=== PATIENT | female | born 1975 | race Two or more races ===

== ENCOUNTER 2017-12-10 05:20 | Day surgery (SDC) | payer OTHER ==
[2017-12-08 15:25] VITALS: BMI 25.2
--- NOTE | 2017-12-10 12:24 | HP ---
History & Physical Update - History History: No Change - Physical Physical: No Change - Assessment Assessment: No Change - Plan Plan: No Change (H & P done on 11/26/17)
[2017-12-10] MEDS ORDERED: LIDOCAINE HCL/PF 2% SDV 5ML VIAL ONE (12:49)
[2017-12-10] MEDS ORDERED: ROCURONIUM BROMIDE 50 MG/5 ML VIAL ONE (12:49)
[2017-12-10] MEDS ORDERED: ceFAZolin SODIUM 1 GM VIAL ONE (12:49)
[2017-12-10] MEDS ORDERED: DEXAMETHASONE SOD PHOSPHATE 4 MG/1 ML VIAL ONE ×2 (12:49→13:41)
[2017-12-10] MEDS ORDERED: MIDAZOLAM HCL 2 MG/2 ML SINGLE DOSE VIAL ONE (12:50)
[2017-12-10] MEDS ORDERED: PROPOFOL 20 ML ONE ×2 (12:50)
[2017-12-10] MEDS ORDERED: SUCCINYLCHOLINE CHLORIDE 200 MG/10 ML VIAL ONE (12:50)
[2017-12-10] MEDS ORDERED: BUPIVACAINE HCL/PF 0.25% (2.5MG/ML) 10 ML VIAL ONE (13:04)
[2017-12-10] MEDS ORDERED: ceFAZolin SODIUM 1 GM VIAL IVPB ONE (13:27)
[2017-12-10] MEDS ORDERED: KETOROLAC TROMETHAMINE 30 MG/1 ML VIAL ONE (13:41)
[2017-12-10] MEDS ORDERED: BUPIVACAINE HCL/PF 0.5% (5MG/ML) 10 ML VIAL IJ ONE (13:45)
[2017-12-10] MEDS ORDERED: BUPIVACAINE HCL/PF 0.25% (2.5MG/ML) 10 ML VIAL IJ ONE (13:45)
[2017-12-10] MEDS ORDERED: GLYCOPYRROLATE 0.2 MG/1 ML VIAL ONE (14:16)
[2017-12-10] MEDS ORDERED: NEOSTIGMINE METHYLSULFATE 0.5 MG/ML - 10 ML MDV ONE (14:16)
--- NOTE | 2017-12-10 14:48 | OP ---
Operative Note - Note: Operative Date: 12/10/17 Pre-Operative Diagnosis: ventral hernia Operation: laparoscopic ventral hernia repair with mesh Post-Operative Diagnosis: Same as Pre-op Surgeon: Ihsan Hester Business Lawyer: Alison Arrieta Anesthesiologist/DIRECTOR STRATEGIC PLANNING: Linda Mccord MD Anesthesia: General Estimated Blood Loss (mls): 20 Fluid Volume Replaced (mls): 1,000 Operative Report Dictated: Yes
--- NOTE | 2017-12-10 14:49 | SURG ---
Surgery Light Oil Operator Note Light Oil Operator: Alison Arrieta PA-C Date of Service: 12/10/17 Diagnosis: ventral hernia Procedure: laparoscopic ventral hernia repair with mesh I was present for the entirety of the operative procedure. For further detail, please refer to operative report. Visit type - Case Type Case Type: Scheduled - Emergency Emergency Visit: No - New patient This patient is new to me today: Yes Date on this admission: 12/10/17
[2017-12-10] MEDS ORDERED: ACETAMINOPHEN 1000 MG/100 ML VIAL (NON FORMULARY) IVPB ONE ×2 (15:30→16:30)
[2017-12-10] MEDS ORDERED: ACETAMINOPHEN INJECTION 100 ML IVPB ONE (15:48)
[2017-12-10] MEDS ORDERED: ONDANSETRON 4 MG/2 ML VIAL IVPUSH PRN (16:05)
[2017-12-10] MEDS ORDERED: LACTATED RINGERS SOLUTION 1,000 ML IV SCH (16:15)
[2017-12-10] MEDS ORDERED: oxyCODONE HCL 5 MG TABLET PO ONE (17:30)
[2017-12-10] MEDS ORDERED: oxyCODONE HCL 5 MG TABLET ONE (17:30)
[2017-12-10 19:19] VITALS: BP 116/68; PULSE 77; TEMP 97.9
--- NOTE | 2017-12-11 12:51 | OP ---
DATE OF OPERATION: 12/10/2017 PROCEDURE: Laparoscopic lysis of adhesions and ventral/epigastric hernia repair with mesh. PREOPERATIVE DIAGNOSIS: Ventral/epigastric hernia with obstruction. POSTOPERATIVE DIAGNOSIS: Ventral hernia with obstruction and intraabdominal adhesions. SURGEON: Ihsan Hester MD MANAGER SCIENTIFIC: JASON Clement ANESTHESIA: General endotracheal. FINDINGS ON PROCEDURE: This is a 42-year-old female who presents with more than 1-month history of tender with abdominal pain at the supraumbilical region aggravated by exertion. A preoperative CT scan revealed a supraumbilical hernia containing incarcerated fat. On physical examination, patient has tender bulge at the supraumbilical region about 3 fingerbreadths above the umbilicus. Because of the patient's previous history of being a liver donor, patient was advised laparoscopic repair of the hernia. Consent was obtained after discussing the risks, benefits, and alternatives of the procedure. DESCRIPTION OF PROCEDURE: Patient was brought to the operating room and placed in supine position. General endotracheal anesthesia was administered. The abdomen was prepped and draped in the usual sterile fashion. The left arm was tucked to the side. The peritoneal cavity was entered using the Optiview technique via a 10- mm incision of the left subcostal area at the end of the Chevron scar. Using a 5- mm 30-degree scope inserted in the 5-mm optical port, pneumoperitoneum was established. The peritoneal cavity was carefully inspected and was noted to be free of inadvertent injury. Two 5-mm ports were inserted at the left flank, one at the level of the umbilicus and one at the left lower quadrant. The left subcostal port was changed into a 12-mm port. The dense adhesion of the omentum to the posterior abdominal wall was noted, and this was taken down sharply using the laparoscopic óscar connected to Monopolar cautery. The incarcerated omentum at the epigastric hernia was also carefully reduced using the laparoscopic grasper and the laparoscopic óscar. A 1.5-cm defect of the linea alba was noted. This was closed with one figure-of-8 Ethibond No. 1 suture using the Clayton-Keyana suture passer. Afterwards, a 4.5-inch round Ventralight ST Mesh was deployed and tacked to the posterior abdominal wall using the AbsorbaTack device. After deployment was deemed satisfactory, the pneumoperitoneum was evacuated and the ports were removed. The wounds were closed with subcuticular Biosyn 4-0 sutures reinforced with Dermabond. The patient was successfully extubated and transferred to the post-anesthesia care unit in satisfactory condition. ESTIMATED BLOOD LOSS: About 10 mL. WOUND CLASS: Clean. The patient received 1 g of Ancef prior to the start of the procedure. Airam [id number] MTDD
== END 2017-12-10 19:20 | disposition home or self-care (01) ==
LOC: JASU-SURG 05:20
PROVIDERS: ATTEND Surgery
PROC: 0WUF4JZ Supplement Abdominal Wall with Synthetic Substitute, Percutaneous Endoscopic Approach (ICD-10-PCS; principal; 2017-12-10 11:00)
DX: K43.6 Other and unspecified ventral hernia with obstruction, without gangrene (principal)
CPT/HCPCS: 84703; 94760; J0131

== ENCOUNTER 2019-04-14 12:43 | Emergency (ER) | payer OTHER ==
[2019-04-14 12:54] VITALS: BP 112/63; PULSE 95; TEMP 98.2; BMI 37.1
[2019-04-14] MEDS ORDERED: FAMOTIDINE 20 MG/50 ML IVPB 20 MG/50 ML MG IVPB ONE ×2 (13:35→13:44)
[2019-04-14] MEDS ORDERED: METOCLOPRAMIDE HCL INJECTION 10 MG/2 ML VIAL IVPB ONE (13:35)
[2019-04-14] MEDS ORDERED: ACETAMINOPHEN 1000 MG/100 ML VIAL (NON FORMULARY) IVPB ONE (13:35)
[2019-04-14] MEDS ORDERED: SODIUM CHLORIDE 1,000 ML IV STA (13:35)
[2019-04-14] MEDS ORDERED: MAG HYDROX/AL HYDROX/SIMETH 30 ML UNIT-DOSE CUP PO ONE (13:36)
--- NOTE | 2019-04-14 13:42 | PDOC ---
History of Present Illness - General Chief Complaint: Pain Stated Complaint: ABD. PAIN Time Seen by Provider: 04/14/19 13:17 History Source: Patient Exam Limitations: Clinical Condition - History of Present Illness Initial Comments: 04/14/19 13:37 Patient with no significant past medical history present with complaint of sudden onset of diffuse abdominal pain, diarrhea. Patient reported worsening cramping abdominal pain. Patient reported having coffee and crackers last night before bed. Denies recent travel or sick contact. Nothing makes the pain better or worse. Patient did not take anything for symptoms Is this a multiple visit Asthma Patient?: No Timing/Duration: 4-6 hours Past History - Past Medical History Allergies/Adverse Reactions: Allergies Allergy/AdvReac Type Severity Reaction Status Date / Time No Known Drug Allergies Allergy Verified 12/10/17 10:17 Home Medications: Ambulatory Orders Famotidine [Pepcid -] 40 mg PO DAILY #7 tablet 04/14/19 Loperamide HCl [Anti-Diarrheal] 2 mg PO Q8H PRN #12 tablet 04/14/19 Mag Hydrox/Aluminum Hyd/Simeth [Maalox Advanced Suspension] 30 ml PO Q8H PRN # 200 ml 04/14/19 Ondansetron [Zofran *Odt*] 4 mg SL Q8H #12 od.tablet 04/14/19 Anemia: No Asthma: No Cancer: No Cardiac Disorders: No CVA: No COPD: No CHF: No Dementia: No Diabetes: No GI Disorders: No Disorders: No HTN: No Hypercholesterolemia: No Liver Disease: No Seizures: No Thyroid Disease: No - Surgical History Abdominal Surgery: Yes (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) Appendectomy: No Cardiac Surgery: No Cholecystectomy: Yes ([facility] 2012) Lung Surgery: No Neurologic Surgery: No Orthopedic Surgery: No - Immunization History Immunization Up to Date: No - Psycho Social/Smoking Cessation Hx Smoking History: Never smoked Have you smoked in the past 12 months: No Hx Alcohol Use: No Drug/Substance Use Hx: No Substance Use Type: None Hx Substance Use Treatment: No Review of Systems - Review of Systems Able to Perform ROS?: Yes Is the patient limited Armenian proficient: No Constitutional: No: Chills, Fever, Malaise HEENTM: No: Symptoms Reported, See HPI, Eye Pain, Blurred Vision, Tearing, Recent change in vision, Double Vision, Cataracts, Ear Pain, Ocular Prothesis, Ear Discharge, Nose Pain, Nose Congestion, Tinnitus, Nose Bleeding, Hearing Loss , Throat Pain, Throat Swelling, Mouth Pain, Dental Problems, Difficulty Swallowing, Mouth Swelling, Other Respiratory: No: Symptoms reported, See HPI, Cough, Orthopnea, Shortness of Breath, SOB with Exertion, SOB at Rest, Stridor, Wheezing, Productive cough, Hemoptysis, Other Cardiac (ROS): No: Symptoms Reported, See HPI, Chest Pain, Edema, Irregular Heart Rate, Lightheadedness, Palpitations, Syncope, Chest Tightness, Other ABD/GI: Yes: Symptoms Reported, See HPI, Abd. Pain w/ defecation, Blood Streaked Bowels, Diarrhea, Difficulty Swallowing, Nausea, Poor Appetite, Rectal Bleeding, Indigestion, Abdominal cramping. No: Constipated, Poor Fluid Intake, Vomiting : No: Symptoms Reported, Burning, Discharge, Frequency, Urgency Musculoskeletal: No: Symptoms Reported Neurological: No: Symptoms reported, Headache, Weakness, Dizziness All Other Systems: Reviewed and Negative *Physical Exam - Vital Signs Last Vital Signs Temp Pulse Resp BP Pulse Ox 98.2 F 95 H 19 112/63 97 04/14/19 12:51 04/14/19 12:51 04/14/19 12:51 04/14/19 12:51 04/14/19 12:51 - Physical Exam 04/14/19 13:41 GENERAL: Well developed, well nourished. Awake and alert in mild acute distress. HEENT: Normocephalic, atraumatic. PERRLA, EOMI. No conjunctival pallor. Sclera are non-icteric. Moist mucous membranes. Oropharynx is clear. NECK: Supple. Full ROM. CARDIOVASCULAR: Regular rate and rhythm. No murmurs, rubs, or gallops. Distal pulses are 2+ and symmetric. PULMONARY: No evidence of respiratory distress. Lungs clear to auscultation bilaterally. No wheezing, rales or rhonchi. ABDOMINAL: Soft. Mild diffuse subjective abdominal tenderness. Non-distended. No rebound or guarding. No organomegaly. Normoactive bowel sounds. MUSCULOSKELETAL Normal range of motion at all joints. SKIN: Warm and dry. Normal capillary refill. No rashes. No jaundice. No cyanosis NEUROLOGICAL: Alert, awake, appropriate. Gait is normal without ataxia. PSYCHIATRIC: Cooperative. Good eye contact. Appropriate mood General Appearance: Yes: Nourished, Appropriately Dressed, Mild Distress ED Treatment Course - LABORATORY CBC & Chemistry Diagram: 04/14/19 13:40 04/14/19 13:40 Medical Decision Making - Medical Decision Making 04/14/19 13:39 Patient with no significant past medical history present with complaint of sudden onset of diffuse abdominal pain, diarrhea. Patient reported worsening cramping abdominal pain. Patient reported having coffee and crackers last night before bed. Denies recent travel or sick contact. Nothing makes the pain better or worse. Patient did not take anything for symptoms Exam significant for diffuse subjective abdominal tenderness with increased bowel sounds diffusely. No rebound or guarding. Symptoms likely viral gastroenteritis versus less likely bacteria gastroenteritis. CBC, CMP lipase lab ordered. IV hydration of 1 L normal saline ordered. Tylenol 1 g IV, Reglan 10 mg IV and Pepcid 20 mg IV ordered for abdominal discomfort. Maalox 30 mL p.o. ordered. Reassess after medication hydration 04/14/19 15:37 Patient reported improvement in symptoms with IV fluids, Pepcid and Reglan. CBC and chemistry lab unremarkable. Urine test with no acute abnormality. Patient symptoms likely viral gastroenteritis and stable for discharge on Pepcid to twice daily for 5 days, Loperamide as needed for diarrhea and Zofran PRN for nausea and vomiting with GI follow-up. Patient advised to increase fluid intake. Discharge - Discharge Information Problems reviewed: Yes Clinical Impression/Diagnosis: Gastroenteritis Diarrhea Qualifiers: Diarrhea type: unspecified type Qualified Code(s): R19.7 - Diarrhea, unspecified Condition: Improved Disposition: HOME - Admission No - Additional Discharge Information Prescriptions: Famotidine [Pepcid -] 40 mg PO DAILY #7 tablet Loperamide HCl [Anti-Diarrheal] 2 mg PO Q8H PRN #12 tablet PRN Reason: diarrhea Mag Hydrox/Aluminum Hyd/Simeth [Maalox Advanced Suspension] 30 ml PO Q8H PRN # 200 ml PRN Reason: abdominal discomfort Ondansetron [Zofran *Odt*] 4 mg SL Q8H #12 od.tablet - Follow up/Referral Referrals: Feroz Marquez MD [Primary Care Provider] - Mario Joe MD [Staff Physician] - - Patient Discharge Instructions Patient Printed Discharge Instructions: DI for Viral Gastroenteritis -- Adult Additional Instructions: Your blood work is normal. urine is normal as well. Your symptoms likely caused by viral stomach infection. Take prescribed medication as prescribed. Increase fluid intake. Follow-up referring GI doctor Dr. Joe if symptoms persist for more than 3 days - Post Discharge Activity
[2019-04-14] MEDS ORDERED: METOCLOPRAMIDE HCL INJECTION 10 MG/2 ML VIAL ONE (13:43)
[2019-04-14] MEDS ORDERED: MAG HYDROX/AL HYDROX/SIMETH 30 ML UNIT-DOSE CUP ONE (13:43)
[2019-04-14] MEDS ORDERED: ACETAMINOPHEN INJECTION 100 ML IVPB ONE (13:43)
[2019-04-14 13:50] LABS: BASO % 0.1 % (0-2.0); EOS % 1.1 % (0-4.5); HEMATOCRIT 44.8 % (32.4-45.2); LYMPH % 6.6 % (8-40); MCH 28.2 pg (25.7-33.7); MCHC 33.5 g/dl (32.0-36.0); MEAN PLT VOLUME 9.4 fl (7.5-11.1); MONO % 4.2 % (3.8-10.2); PLATELET COUNT 267 K/MM3 (134-434); RBC 5.34 M/mm3 (3.60-5.2); RDW 15.7 % (11.6-15.6); WHITE BLOOD COUNT 10.6 K/mm3 (4.0-10.0)
[2019-04-14 14:25] LABS: ALBUMIN 3.8 g/dl (3.4-5.0); BLOOD UREA NITROGEN 7.9 mg/dL (7-18); CALCIUM 8.6 mg/dL (8.5-10.1); CREATININE 0.7 mg/dL (0.55-1.3); POTASSIUM 4.2 mmol/L (3.5-5.1); TOT PROT 7.8 g/dl (6.4-8.2)
[2019-04-14 15:18] LABS: EPI CELLS 3.1 /HPF (0-5/HPF); HYALINE CASTS 3 /lpf (0-8); PH,URINE 5.5 (5.0-8.0); URINE APPEARANCE CLEAR; URINE BACTERIA 98.1 /hpf (NEGATIVE); URINE BILIRUBIN NEGATIVE (NEGATIVE); URINE COLOR YELLOW; URINE GLUCOSE (UA) NEGATIVE (NEGATIVE); URINE KETONE 1+ (NEGATIVE); URINE LEUK ESTERASE NEGATIVE (NEGATIVE); URINE NITRITE NEGATIVE (NEGATIVE); URINE PROTEIN NEGATIVE (NEGATIVE); URINE RBC 5 /hpf (0-4); URINE UROBILINOGEN 0.2 mg/dL (0.2-1.0); URINE WBC 1 /hpf (0-5)
== END 2019-04-14 15:48 | disposition home or self-care (01) ==
LOC: JER 12:43
PROC: 3E033NZ Introduction of Analgesics, Hypnotics, Sedatives into Peripheral Vein, Percutaneous Approach (ICD-10-PCS; principal; 2019-04-14)
PROC: 3E033GC Introduction of Other Therapeutic Substance into Peripheral Vein, Percutaneous Approach (ICD-10-PCS; 2019-04-14)
DX: K52.9 Noninfective gastroenteritis and colitis, unspecified (principal); R19.7 Diarrhea, unspecified
CPT/HCPCS: 36415; 80053; 81003; 83690; 84703; 85025; 87086; 96365; 96374; 96375; 99282-25; J0131; J7030

== ENCOUNTER 2019-10-10 21:05 | Emergency (ER) | payer OTHER ==
--- NOTE | 2019-10-10 21:41 | PDOC ---
Rapid Medical Evaluation Chief Complaint: Eye Problem Time Seen by Provider: 10/10/19 21:39 Medical Evaluation: Allergies Allergy/AdvReac Type Severity Reaction Status Date / Time No Known Drug Allergies Allergy Verified 12/10/17 10:17 10/10/19 21:39 43 year old female c/o b/l eye redness and drainage x 1 weeks. Last Vital Signs Temp Pulse Resp BP Pulse Ox 98.6 F 75 20 127/81 100 10/10/19 21:38 10/10/19 21:38 10/10/19 21:38 10/10/19 21:38 10/10/19 21:38 PE: patient alert ox3, b/l conjuctival erythema, matted lashes. A: conjuctivitis P: patient to fast track for further management of cARE. 10/10/19 21:41 Discharge Disposition - Diagnosis Acute bacterial conjunctivitis of both eyes - Referrals - Patient Instructions - Post Discharge Activity
[2019-10-10 21:43] VITALS: BP 127/81; PULSE 75; TEMP 98.6; BMI 26.2
--- NOTE | 2019-10-10 21:51 | PDOC ---
History of Present Illness - General Chief Complaint: Eye Problem Stated Complaint: PINK EYE Time Seen by Provider: 10/10/19 21:39 - History of Present Illness Initial Comments: 10/10/19 21:49 43-year-old female with bilateral eye irritation x2 weeks no systemic symptoms no visual changes No comorbidities. Past History - Medical History Allergies/Adverse Reactions: Allergies Allergy/AdvReac Type Severity Reaction Status Date / Time No Known Drug Allergies Allergy Verified 12/10/17 10:17 Home Medications: Ambulatory Orders Famotidine [Pepcid -] 40 mg PO DAILY #7 tablet 04/14/19 Loperamide HCl [Anti-Diarrheal] 2 mg PO Q8H PRN #12 tablet 04/14/19 Mag Hydrox/Aluminum Hyd/Simeth [Maalox Advanced Suspension] 30 ml PO Q8H PRN #200 ml 04/14/19 Ondansetron [Zofran *Odt*] 4 mg SL Q8H #12 od.tablet 04/14/19 Olopatadine HCl [Pataday] 1 drop OU DAILY #1 bottle 10/10/19 Anemia: No Asthma: Yes Cancer: No Cardiac Disorders: No CVA: No COPD: No CHF: No Dementia: No Diabetes: No GI Disorders: No Disorders: No HTN: No Hypercholesterolemia: No Liver Disease: No Seizures: No Thyroid Disease: No - Surgical History Abdominal Surgery: Yes (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 Audit-10AR): Negative Review of Systems - Review of Systems HEENTM: Yes: Tearing. No: Eye Pain, Blurred Vision, Recent change in vision, Double Vision, Cataracts *Physical Exam - Vital Signs Last Vital Signs Temp Pulse Resp BP Pulse Ox 98.6 F 75 20 127/81 100 10/10/19 21:38 10/10/19 21:38 10/10/19 21:38 10/10/19 21:38 10/10/19 21:38 - Physical Exam 10/10/19 21:50 Bilateral conjunctiva are injected with swelling and chemosis Medical Decision Making - Medical Decision Making 10/10/19 21:50 This case was discussed with emergency room attending. This is allergic conjunctivitis. Antihistamine eyedrops follow-up with ophthalmology I have reviewed the pathophysiology with the patient. They are in agreement with the treatment plan all questions were answered to their satisfaction. Understanding for follow-up without fail was also conveyed to the patient. Again they are in agreement. Discharge - Discharge Information Problems reviewed: Yes Clinical Impression/Diagnosis: Allergic conjunctivitis Clinical Impression/Diagnosis: (Ruled Out): Acute bacterial conjunctivitis of both eyes Condition: Stable Disposition: HOME - Admission No - Additional Discharge Information Prescriptions: Olopatadine HCl [Pataday] 1 drop OU DAILY #1 bottle - Follow up/Referral Referrals: Kingston Poon MD [Primary Care Provider] - Yuri Ellis MD [Staff Physician] - - Patient Discharge Instructions Additional Instructions: Please use the eyedrops as directed and return to the emergency room should symptoms worsen or go unresolved. Without fail follow-up with ophthalmology in 1 to 2 days for further evaluation and treatment options. - Post Discharge Activity
== END 2019-10-10 22:04 | disposition home or self-care (01) ==
LOC: JER 21:05 → JERFT 21:05
DX: H10.33 Unspecified acute conjunctivitis, bilateral (principal)
CPT/HCPCS: 99283-25